=== PATIENT | female | born 1995 | race Native Hawaiian/Other Pacific Islander ===

== ENCOUNTER 2017-04-21 21:53 | Emergency (ER) | payer OTHER ==
[2017-04-21] MEDS ORDERED: Alum-Mag Hydrox-Simethicone Susp (30 mL) PO STA (23:40)
--- NOTE | 2017-04-22 00:01 | ED PDOC ---
HPI: Abdomen Time Seen by Provider: 04/21/17 23:21 Chief Complaint (Nursing): Abdominal Pain Chief Complaint (Provider): Abdominal Pain History Per: Patient History/Exam Limitations: no limitations Onset/Duration Of Symptoms: Hrs Outside of [place] travel?: No Severity: Mild Location Of Pain/Discomfort: Epigastric Associated Symptoms: Vomiting. denies: Fever, Chills, Nausea, Diarrhea, Loss Of Appetite, Urinary Symptoms Exacerbating Factors: Food (temporarily resolved pain) Last Bowel Movement: Today Additional Complaint(s): 22 y/o female patient presenting to the ED with abdominal pain that the patient states began this morning and led to her mother bringing her to the Emergency Department. PT states she vomited this morning and believes there was "some" blood in the vomit. After vomiting she was able to eat which she states temporarily resolved her pain but then it came back. The PT states she had no fever, no urinary issues, and normal stools, The PT denies any past medical history. Abnormal Vaginal Bleeding: No Past Medical History Reviewed: Historical Data, Nursing Documentation, Vital Signs Vital Signs: Last Vital Signs Temp 98.4 F 04/21/17 22:45 Pulse 88 04/21/17 22:45 Resp 17 04/21/17 22:45 BP 109/55 L 04/21/17 22:45 Pulse Ox 100 04/22/17 00:10 - Medical History PMH: No Chronic Diseases - Surgical History Surgical History: No Surg Hx - Family History Family History: States: No Known Family Hx - Living Arrangements Living Arrangements: With Family - Social History Current smoker - smoking cessation education provided: No Alcohol: None - Home Medications Home Medications: Ambulatory Orders Medication Instructions Recorded Famotidine [Pepcid] 20 mg PO BID #30 tab 04/22/17 - Allergies Allergies/Adverse Reactions: Allergies Allergy/AdvReac Type Severity Reaction Status Date / Time No Known Allergies Allergy Verified 04/21/17 22:48 Review of Systems ROS Statement: Except As Marked, All Systems Reviewed And Found Negative Constitutional: Negative for: Fever, Weakness Cardiovascular: Negative for: Chest Pain Respiratory: Negative for: Shortness of Breath Gastrointestinal: Positive for: Vomiting. Negative for: Abdominal Pain, Diarrhea, Constipation, Hematochezia, Hematemesis Genitourinary Female: Negative for: Dysuria Physical Exam - Reviewed Nursing Documentation Reviewed: Yes Vital Signs Reviewed: Yes - Physical Exam Appears: Positive for: Non-toxic, No Acute Distress Head Exam: Positive for: ATRAUMATIC, NORMAL INSPECTION, NORMOCEPHALIC Skin: Positive for: Normal Color, Warm Neck: Positive for: Normal, Painless ROM, Supple Cardiovascular/Chest: Positive for: Regular Rate, Rhythm. Negative for: Murmur Respiratory: Positive for: Normal Breath Sounds. Negative for: Respiratory Distress Gastrointestinal/Abdominal: Positive for: Normal Exam, Soft. Negative for: Tenderness, Distended, Guarding, Rebound Extremity: Positive for: Normal ROM Neurologic/Psych: Positive for: Alert, Oriented. Negative for: Motor/Sensory Deficits - ECG O2 Sat by Pulse Oximetry: 100 (RA) Pulse Ox Interpretation: Normal Medical Decision Making Medical Decision Making: Time: 2339 Initial impression: GASTRITIS Initial plan: --ED URINE DIPSTICK --ED URINE --ALUMINUM HYDROXIDE/MAGNESIUM 30ML --FAMOTIDINE [PEPCID] 20 MG PO --LIDOCINE 2& VISCOUS 15 ML PO --URINALYSIS 2AM: Pt. feeling much better, tolerating PO. Will d/c home. Return precautions given. Scribe Attestation: Documented by Patsy Malcolm, acting as a scribe for Fermin Merritt MD MD Scribe Attestation: All medical record entries made by the Scribe were at my direction and personally dictated by me. I have reviewed the chart and agree that the record accurately reflects my personal performance of the history, physical exam, medical decision making, and the department course for this patient. I have also personally directed, reviewed, and agree with the discharge instructions and disposition. Disposition - Clinical Impression Clinical Impression: Gastritis - Disposition Referrals: [facility] [Outside] Disposition Time: 02:00 Condition: STABLE Prescriptions: Famotidine [Pepcid] 20 mg PO BID #30 tab Instructions: Gastritis (ED)
[2017-04-22] MEDS ORDERED: Alum-Mag Hydrox-Simethicone Susp (30 mL) ONE (00:03)
[2017-04-22 02:09] LABS: URINE COLOR YELLOW (YELLOW); URINE GLUCOSE (UA) NEGATIVE (Normal)
[2017-04-22 02:10] LABS: URINE BILIRUBIN NEGATIVE (NEGATIVE); URINE KETONE TRACE mg/dL (NEGATIVE)
[2017-04-22 02:11] LABS: RBC URINE 3 /hpf (0-3); URINE BLOOD NEGATIVE (NEGATIVE); URINE LEUKOCYTE ESTERASE MOD Leu/uL (Negative); URINE PROTEIN NEGATIVE (NEGATIVE); URINE UROBILINOGEN 0.2 mg/dL (0.2-1.0)
[2017-04-22 02:12] LABS: WBC URINE 25 /hpf (0-5)
[2017-04-22 02:15] VITALS: BP 116/69; PULSE 81; RESP 16; TEMP 98.2; O2SAT 99
== END 2017-04-22 02:11 | disposition home or self-care (01) ==
LOC: H.ER 21:53
DX: K29.70 Gastritis, unspecified, without bleeding (principal); R11.10 Vomiting, unspecified

== ENCOUNTER 2017-05-25 23:43 | Emergency (ER) | payer OTHER ==
[2017-05-26 00:06] VITALS: BMI 22.6
[2017-05-26 00:09] VITALS: BP 95/63; PULSE 68; RESP 16; TEMP 97.7; O2SAT 99
--- NOTE | 2017-05-26 00:51 | ED PDOC ---
HPI: Wound Care - HPI Time Seen by Provider: 05/26/17 00:12 Chief Complaint (Nursing): Bite Chief Complaint (Provider): cat bite History Per: Patient Additional Complaint(s): 22 year old female with no past medical history presents to ED s/p being bit by a stray cat in her backyard just prior to arrival. Patient was bit on her right hand. She cleansed area and came to ED. Tetanus is up to date. Patient states cat is not a pet and she was not able to retrieve animal after incident. Past Medical History Reviewed: Historical Data, Nursing Documentation, Vital Signs Vital Signs: Last Vital Signs Temp 97.7 F 05/26/17 00:07 Pulse 68 05/26/17 00:07 Resp 16 05/26/17 00:07 BP 95/63 L 05/26/17 00:07 Pulse Ox 99 05/26/17 00:07 - Medical History PMH: No Chronic Diseases - Surgical History Surgical History: No Surg Hx - Family History Family History: States: No Known Family Hx - Living Arrangements Living Arrangements: With Family - Social History Current smoker - smoking cessation education provided: No Alcohol: None Drugs: Denies - Immunization History Hx Tetanus Toxoid Vaccination: Yes - Home Medications Home Medications: Ambulatory Orders Medication Instructions Recorded Amoxicillin/Clavulanate [Augmentin 1 tab PO BID #14 tab 05/26/17 875 MG-125 MG] - Allergies Allergies/Adverse Reactions: Allergies Allergy/AdvReac Type Severity Reaction Status Date / Time No Known Allergies Allergy Verified 05/26/17 00:06 Review of Systems ROS Statement: Except As Marked, All Systems Reviewed And Found Negative Skin: Positive for: Other (cat bite right hand) Physical Exam - Reviewed Nursing Documentation Reviewed: Yes Vital Signs Reviewed: Yes - Physical Exam Appears: Positive for: Well, Non-toxic, No Acute Distress Skin: Negative for: Rash Eye Exam: Positive for: Normal appearance Extremity: Positive for: Other (minute puncture wounds noted to interdigital space between right 1st and 2nd digits. No active bleeding, full rom of all digits of right hand with normal distal sensation) Neurologic/Psych: Positive for: Alert, Oriented - Laboratory Results Urine POC: Negative - ECG O2 Sat by Pulse Oximetry: 99 Pulse Ox Interpretation: Normal Medical Decision Making Medical Decision Makin22 year old with cat bite to right hand Plan: Initial dose augmentin 875 mg PO Weight-based rabies immunoglobulin injection Initial rabies vaccination Pharmacy did not have vaccine in stock. Vaccine was obtained from [facility] did not have immunoglobulin. This was obtained from [facility]. Patient tolerated meds well in ED. Patient was given schedule for rabies vaccine. Rx augmentin. Wound care instructions given. Disposition - Clinical Impression Clinical Impression: Cat bite, Need for prophylactic vaccination against rabies - Patient ED Disposition Is Patient to be Admitted: No Counseled Patient/Family Regarding: Diagnosis, Need For Followup, Rx Given - Disposition Referrals: [facility] [Outside] Disposition: Routine/Home Disposition Time: 03:58 Condition: STABLE Additional Instructions: Take antibiotics as directed. Take [id number] Tylenol or Advil for pain as needed. Return to emergency department according to rabies vaccination schedule. Prescriptions: Amoxicillin/Clavulanate [Augmentin 875 MG-125 MG] 1 tab PO BID #14 tab Instructions: Rabies Vaccine (By injection), Rabies Immune Globulin (By injection), Animal Bite (ED)
[2017-05-26] MEDS ORDERED: RABIES VACCINE 2.5 U PDR IM ONE (00:52)
[2017-05-26] MEDS ORDERED: Rabies Immune Globulin 150 INTLU/ML VIAL IM STA (00:52)
[2017-05-26] MEDS ORDERED: Amoxicillin-Clav 875-125 mg Tab PO STA (00:53)
[2017-05-26] MEDS ORDERED: Amoxicillin-Clav 875-125 mg Tab PO ONE (01:15)
== END 2017-05-26 05:02 | disposition home or self-care (01) ==
LOC: H.ER 23:43
DX: T14.8 Other injury of unspecified body region (principal); W55.01XA Bitten by cat, initial encounter; Y92.89 Other specified places as the place of occurrence of the external cause